=== PATIENT | female | born 2000 | race Two or more races ===

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

== ENCOUNTER 2021-10-31 22:29 | Emergency (ER) | payer MEDICAID ==
[~2021-10-31] VITALS: Ht 165.1 cm; Wt 97.5 kg
[~2021-10-31 22:29] MED LIST changes: -PREN-153 OR; +PREN1TAB71 OR
[2021-10-31 23:24] LABS: Urine Bacteria NONE SEEN /hpf (None Seen); Urine Blood Negative /uL (Negative); Urine Mucus FEW (None Seen); Urine Specific Gravity 1.009 (1.001-1.035); Urine WBC 15 /hpf (0 - 5)
[2021-11-01] MEDS ORDERED: ACETAMINOPHEN 500 MG TAB PO ONE
[2021-11-01 00:17] LABS: Basophils # (auto) 0 10 ^3/uL (0-0.2); Basophils % (auto) 0.4 % (0.0-2.0); Eosinophils # (auto) 0 10 ^3/uL (0-0.8); Hematocrit 37.1 % (36.0-46.0); Hemoglobin 12.9 g/dL (12.2-16.2); Lymphocytes # (auto) 0.9 10 ^3/uL (0.4-5.4); Lymphocytes % (auto) 11.2 % (10.0-50.0); Mean Corpuscular Hemoglobin 27.4 pg (28.0-32.0); Mean Corpuscular Hgb Conc. 34.7 g/dL (32.0-36.0); Mean Corpuscular Volume 78.8 fL (80.0-100.0); Monocytes # (auto) 0.6 10 ^3/uL (0-1.3); Monocytes % (auto) 7.3 % (0.0-12.0); Neutrophils # (auto) 6.7 10 ^3/uL (1.6-8.6); Neutrophils % (auto) 81.1 % (37.0-80.0); Nucleated Red Blood Cells % 0.1 %; Red Blood Cells 4.71 10^6/uL (4.0-5.20); Red Cell Distribution Width 15.2 % (11.8-14.3); White Blood Cell 8.3 10^3/uL (4.4-10.8)
[2021-11-01 00:21] LABS: Albumin 3.3 g/dL (3.4-5.0); BUN/Creatinine Ratio 10.3; Calcium 8.3 mg/dL (8.5-10.1); Potassium 3.5 mmol/L (3.5-5.1)
[2021-11-01 00:24] LABS: Bilirubin, Total 0.4 mg/dL (0.2-1.0); Total Protein 8.1 g/dL (6.4-8.2)
[2021-11-01] MEDS ORDERED: CEFD300C2 PO (04:11)
[2021-11-01 04:20] VITALS: BP 115/68
[2021-11-02] MEDS ORDERED: FAMO20TA10 PO (06:51)
== END 2021-11-01 04:41 | disposition home or self-care (01) ==
LOC: ER 22:29
DX: J02.8 Acute pharyngitis due to other specified organisms (principal); B97.89 Other viral agents as the cause of diseases classified elsewhere; R10.11 Right upper quadrant pain; R10.12 Left upper quadrant pain; R11.0 Nausea; R19.7 Diarrhea, unspecified; J45.909 Unspecified asthma, uncomplicated; Z90.49 Acquired absence of other specified parts of digestive tract; Z79.899 Other long term (current) drug therapy; Z91.018 Allergy to other foods
CPT/HCPCS: 36415; 80053; 81001; 81025; 83690; 85025; 87070; 87880; 93005

== ENCOUNTER 2021-11-01 18:48 | Emergency (ER) | payer MEDICAID ==
[~2021-11-01] VITALS: Ht 165.1 cm; Wt 97.5 kg
[~2021-11-01 18:48] MED LIST changes: +CEFD300C2 PO
[2021-11-01 23:12] LABS: Basophils # (auto) 0 10 ^3/uL (0-0.2); Basophils % (auto) 0.3 % (0.0-2.0); Eosinophils # (auto) 0 10 ^3/uL (0-0.8); Hematocrit 37.6 % (36.0-46.0); Hemoglobin 12.7 g/dL (12.2-16.2); Lymphocytes # (auto) 0.7 10 ^3/uL (0.4-5.4); Lymphocytes % (auto) 8.1 % (10.0-50.0); Mean Corpuscular Hemoglobin 26.2 pg (28.0-32.0); Mean Corpuscular Hgb Conc. 33.8 g/dL (32.0-36.0); Mean Corpuscular Volume 77.4 fL (80.0-100.0); Monocytes # (auto) 0.7 10 ^3/uL (0-1.3); Monocytes % (auto) 7.8 % (0.0-12.0); Neutrophils # (auto) 7.5 10 ^3/uL (1.6-8.6); Neutrophils % (auto) 83.8 % (37.0-80.0); Red Blood Cells 4.86 10^6/uL (4.0-5.20); White Blood Cell 8.9 10^3/uL (4.4-10.8)
[2021-11-01 23:48] LABS: Albumin 3.2 g/dL (3.4-5.0); Calcium 8.6 mg/dL (8.5-10.1); Magnesium 2.6 mg/dL (1.6-2.6); Potassium 3.2 mmol/L (3.5-5.1)
[2021-11-01 23:53] LABS: BUN/Creatinine Ratio 15.7; Bilirubin, Total 0.4 mg/dL (0.2-1.0); Total Protein 8.2 g/dL (6.4-8.2)
[2021-11-02 01:00] LABS: Urine Bacteria NONE SEEN /hpf (None Seen); Urine Blood 1+ /uL (Negative); Urine Mucus MODERATE (None Seen); Urine Specific Gravity 1.036 (1.001-1.035); Urine WBC 28 /hpf (0 - 5)
[2021-11-02] MEDS ORDERED: LIDOCAINE VISCOUS 2% 15ML UD PO ONE (01:15)
[2021-11-02] MEDS ORDERED: ACETAMINOPHEN 325 MG TAB PO ONE (01:15)
[2021-11-02 06:50] VITALS: BP 118/73
[2021-11-02] MEDS ORDERED: FAMO20TA10 PO (06:51)
== END 2021-11-02 07:00 | disposition home or self-care (01) ==
LOC: ER 18:48
DX: K21.9 Gastro-esophageal reflux disease without esophagitis (principal); J45.909 Unspecified asthma, uncomplicated; Z90.49 Acquired absence of other specified parts of digestive tract
CPT/HCPCS: 36415; 71045; 80053; 81001; 83735; 84484; 85025; 93005

== ENCOUNTER 2022-04-22 20:56 | Emergency (ER) | payer MEDICAID ==
[~2022-04-22 20:56] MED LIST changes: +FAMO20TA10 PO
== END 2022-04-22 21:51 | disposition left against medical advice (07) ==
LOC: ER 20:56
DX: R10.9 Unspecified abdominal pain (principal); Z53.21 Procedure and treatment not carried out due to patient leaving prior to being seen by health care provider

== ENCOUNTER 2022-11-08 22:55 | Emergency (ER) | payer MEDICAID ==
[~2022-11-08] VITALS: Ht 160 cm; Wt 65.9 kg
[2022-11-09] MEDS ORDERED: CEPH-510 PO (00:59)
[2022-11-09 02:42] VITALS: BP 101/69
== END 2022-11-09 02:49 | disposition home or self-care (01) ==
LOC: EDBD 22:55 → ER 22:55
DX: O23.42 Unspecified infection of urinary tract in pregnancy, second trimester (principal); N39.0 Urinary tract infection, site not specified; O99.512 Diseases of the respiratory system complicating pregnancy, second trimester; J45.909 Unspecified asthma, uncomplicated; Z90.49 Acquired absence of other specified parts of digestive tract; Z79.899 Other long term (current) drug therapy; Z91.018 Allergy to other foods; Z3A.18 18 weeks gestation of pregnancy

== ENCOUNTER 2023-04-10 22:18 | Observation (INO) | payer MEDICAID ==
[~2023-04-10] VITALS: Ht 165.1 cm; Wt 84.4 kg
[~2023-04-10 22:18] MED LIST changes: -ACET-1156 PO; +ACET-1881 PO; +CEPH-510 PO
[2023-04-11 01:16] LABS: Alcohol, Urine < 3.0 mg/dL (0-10); Amphetamine Screen, Urine NEGATIVE (NEGATIVE); Barbiturate Scree,Urine NEGATIVE (NEGATIVE); Cannabinoid Screen, Urine NEGATIVE (NEGATIVE); Cocaine Screen, Urine NEGATIVE (NEGATIVE); Opiate Scree,Urine NEGATIVE (NEGATIVE)
[2023-04-11 01:47] LABS: Benzodiazephine Screen, Urine NEGATIVE (NEGATIVE); Phencyclidine Screen, Urine NEGATIVE (NEGATIVE)
== END 2023-04-11 00:04 | disposition home or self-care (01) ==
LOC: LDRP 22:18
PROVIDERS: ADMIT Obstetrics & Gynecology; ATTEND Obstetrics & Gynecology
DX: O26.893 Other specified pregnancy related conditions, third trimester (principal); R10.9 Unspecified abdominal pain; Z3A.40 40 weeks gestation of pregnancy; Z79.899 Other long term (current) drug therapy
CPT/HCPCS: 59025; 80307; 81002; G0378

== ENCOUNTER 2024-01-13 13:09 | Emergency (ER) | payer MEDICAID ==
[~2024-01-13] VITALS: Ht 165.1 cm; Wt 86.5 kg
[2024-01-13 13:47] VITALS: BP 125/81; PULSE 72; RESP 16; TEMP 99; O2SAT 99
[2024-01-13] MEDS: ACETAMINOPHEN 500 MG TAB PO ONE (14:03)
[2024-01-13] MEDS ORDERED: METH-1182 PO (14:25)
[2024-01-13] MEDS ORDERED: IBUP-1456 PO (14:25)
== END 2024-01-13 14:28 | disposition home or self-care (01) ==
LOC: ER 13:09
DX: S16.1XXA Strain of muscle, fascia and tendon at neck level, initial encounter (principal); J45.909 Unspecified asthma, uncomplicated; Z90.49 Acquired absence of other specified parts of digestive tract; Z91.040 Latex allergy status; Z91.02 Food additives allergy status; V43.52XA Car driver injured in collision with other type car in traffic accident, initial encounter; Y93.89 Activity, other specified; Y92.89 Other specified places as the place of occurrence of the external cause; Y99.8 Other external cause status
CPT/HCPCS: 72040

== ENCOUNTER 2025-03-01 18:09 | Emergency (ER) | payer OTHER, MEDICAID ==
[~2025-03-01] VITALS: Ht 162.6 cm; Wt 86.4 kg
[~2025-03-01 18:09] MED LIST changes: +IBUP-1456 PO; +METH-1182 PO
[2025-03-01] MEDS: IBUPROFEN 800 MG TAB PO ONE (19:45)
[2025-03-01] MEDS ORDERED: IBUP-1456 PO (19:50)
--- NOTE | 2025-03-01 19:50 | ED.PDOC ---
Back pain HPI HPI Comments 24-year-old female presents to ER with complaints of back pain x1 day. 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 when she started experiencing diffuse lower lumbar back pain. She rates her current pain an 8/10 diffuse to lower lumbar spine without radiation. Reports that she did take Tylenol for her pain with slight relief and presents to ER ambulatory on arrival, with steady gait, in no distress. Denies nausea/vomiting, numbness/tingling, extremity weakness, chest pain, falls, changes in urination/BM or any further symptoms/complaints Time Seen by MD: 18:17 Primary Care Provider: PJ Gallegos Notes: Nurses Notes, Medications, Allergies Allergies: Coded Allergies: Pineapple (Verified Allergy, Intermediate, 04/10/23) patient states no allergies to pineapple. Latex (Verified Allergy, Mild, 04/10/23) Home Meds Active Scripts Ibuprofen (Ibuprofen) 800 Mg Tab, 1 TAB PO TID PRN, #30 TAB 0 Refills Prov:MIKE BROWNING 03/01/25 Methocarbamol (Methocarbamol) 750 Mg Tab, 750 MG PO BID, #20 TAB Prov:JERALD BAR 01/13/24 Ibuprofen (Ibuprofen) 800 Mg Tab, 1 TAB PO TID, #30 TAB Prov:JERALD BAR 01/13/24 Cephalexin ( Keflex 500) 500 Mg Cap, 2 CAP PO BID for 7 Days, #28 CAP Prov:SYEDA CAMILO DO 11/09/22 Famotidine (PEPCID TABLET) 20 Mg Tb, 1 TAB PO BID for 14 Days, #28 TAB Prov:CATARINO ARELLANO MD 11/02/21 Cefdinir (Cefdinir) 300 Mg Cap, 1 CAP PO BID for 7 Days, #14 CAP Prov:CATARINO ARELLANO MD 11/01/21 Reported Medications Acetaminophen (Acetaminophen) 325 Mg Tab, 325 MG PO Q4HP PRN for MILD PAIN for 30 Days, MG 0 Refills 08/23/19 Vit W/ Ferrous Fumara (PNV PLUS MULTIVI) Plus Tab, 1 OR, TAB 08/23/19 No Reported Medication (NO REPORTED MEDICATION) Ea, 0 CO UNK, EA PATIENT HAS NO REPORTED MEDICATIONS 06/30/13 Information Source: Patient Past Medical History PAST MEDICAL HISTORY: Asthma, UTI'S Surgical History: Cholecystectomy 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 HELPER History Family History Family History: No family hx of Cancer, No family hx of DM, No family hx of Lung tono Social History Smoker: Non-Smoker Alcohol: Denies ETOH Use Drugs: Denies Drug Use Lives In: Home Constitutional: denies: chills, diaphoresis, fatigue, fever, malaise, sweats, weakness, others EENTM: denies: blurred vision, double vision, ear bleeding, ear discharge, ear drainage, ear pain, ear ringing, eye pain, eye redness, hearing loss, mouth pain, mouth swelling, nasal discharge, nose bleeding, nose congestion, nose pain, photophobia, tearing, throat pain, throat swelling, voice changes, others Respiratory: denies: cough, hemoptysis, orthopnea, SOB at rest, shortness of breath, SOB with excertion, stridor, wheezing, others Cardiovascular: denies: chest pain, dizzy spells, diaphoresis, Dyspnea on exertion, edema, irregular heart beat, left arm pain, lightheadedness, palpitations, PND, syncope, others Gastrointestinal: denies: abdomen distended, abdominal pain, blood streaked bowels, constipated, diarrhea, dysphagia, difficulty swallowing, hematemesis, melena, nausea, poor appetite, poor fluid intake, rectal bleeding, rectal pain, vomiting, others Genitourinary: denies: abnormal vagina bleeding, burning, dyspareunia, dysuria, flank pain, frequency, hematuria, incontinence, pain, , vagina discharge, urgency, others Neurological: denies: dizziness, fainting, headache, left sided numbness, left sided weakness, numbness, paresthesia, pre-existing deficit, right sided numbness, right sided weakness, seizure, speech problems, tingling, tremors, weakness, others Musculoskeletal: reports: others (As stated in HPI) Integumetry: denies: bruises, change in color, change in hair/nails, dryness, laceration, lesions, lumps, rash, wounds, others Allergic/Immunocompromised: denies: Difficulty Healing, Frequent Infections, Hives, Itching, others Hematologic/Lymphatic: denies: anemia, blood clots, easy bleeding, easy bruising, swollen glands, others Endocrine: denies: excessive hunger, excessive sweating, excessive thirst, excessive urination, flushing, intolerance to cold, intolerance to heat, unexplained weight gain, unexplained weight loss, others Psychiatric: denies: anxiety, bipolar disorder, depression, hopeless, panic disorder, schizophrenia, sleepless, suicidal, others Physical Exam General Appearance: No Apparent Distress HEENT: PERRL/EOMI Neck: Full Range of Motion, Non-Tender, Normal Respiratory: Chest Non-Tender, Lungs Clear, No Accessory Muscle Use, No Respira tory Distress, Normal Breath Sounds Cardiovascular: No Murmur, No Gallop, Regular Rate/Rhythm Breast Exam: Deferred Gastrointestinal: Non Tender, No Pulsatile Mass, Soft Genitalia: Deferred Pelvic: Deferred Rectal: Deferred Extremities: Normal capillary refill, Normal range of motion Musculoskeletal : Extremity Location: Back (TTP centralized to lower lumbar spine and to bilateral lower lumbar paraspinals noted. No skin changes noted. Steady gait appreciated) Neurologic: Alert, No Motor Deficits, Normal Affect, Normal Mood, No Sensory Deficits Cerebellar Function: Normal Reflexes: Normal Skin: Dry, Normal Color, Warm Peripheral Pulses: 2+ femoral (R), 2+ femoral (L), 2+ dorsalis pedis (R), 2+ dorsalis pedis (L), 2+ Radial (R), 2+ Radial (L), 2+ Brachial (R), 2+ Brachial (L) Lymphatic: No Adenopathy Was a procedure done? Was a procedure done?: No Sedation Sedation?: No Back Pain Differential Dx Differential Diagnosis: Fracture, Other (Neurovascular injury, UTI) X-Ray, Labs, Meds, VS Vital Signs Date Time Temp Pulse Resp B/P (MAP) Pulse Ox O2 Delivery O2 Flow Rate FiO2 03/01/25 23:45 98.0 59 16 125/83 (97) 100 98.0 03/01/25 21:19 98.3 70 18 135/99 (111) 100 98.3 PATIENT: STEFFANY VIRAMONTES ACCT: [id number] UNIT: [id number] : 2000 LOC: ER ROOM / BED: / AGE / SEX: 24 / F ADM STATUS: REG ER SERVICE 39 ORDERING PHYSICIAN: MIKE BROWNING PROCEDURE(s): LUMB2 - LUMBAR SPINE 3 VIEW REASON: lumbar back pain ORDER NUMBER(s): [id number], ACCESSION NUMBER(s): [id number] EXAM: XY LUMBAR SPINE 2 VIEW DATE OF SERVICE: 03/01/2025 07:55 PM ORDERING PHYSICIAN: MIKE BROWNING REASON FOR EXAM: lumbar back pain TECHNIQUE: 2 views of the lumbar spine COMPARISON: None FINDINGS/IMPRESSION: No acute displaced fracture. The alignment is maintained. Intervertebral disc heights are maintained. Surgical clips project over the right upper quadrant. If clinical symptoms persist, CT or MRI may be beneficial in further evaluation. ATED BY: TYREE LANE MD DICTATED DATE/TIME: 03/01/252033 SIGNED BY: TYREE LANE MD SIGNED DATE/TIME: 03/01/252033 CC: waiver signed Ibuprofen 800 mg p.o. ordered Lumbar spine x-ray reviewed Workman's comp paperwork filled out Advised to follow up with PCP and workman's comp PCP in 1-2 days Patient verbalized understanding and agreeable with current plan of care Advised to return to ER immediately if symptoms worsen Images Reviewed?: Images reviewed and evaluated by me Time of 1ST Reevaluation: 19:42 Reevaluation 1ST: N/A Patient Education/Counseling: Diagnosis, Treatment, Prognosis, Need For Follow Up Family Education/Counseling: No Family Present SEPSIS Sepsis Screen Physician Orders Lumbar Spine 3 View (03/01/25 19:40) Vital Signs Date Time Temp Pulse Resp B/P (MAP) Pulse Ox O2 Delivery O2 Flow Rate FiO2 03/01/25 23:45 98.0 59 16 125/83 (97) 100 98.0 03/01/25 21:19 98.3 70 18 135/99 (111) 100 98.3 Departure 1 Departure Time of Disposition: 22:54 Impression: Primary Impression: Lumbar strain Qualified Codes: S39.012A - Strain of muscle, fascia and tendon of lower back, initial encounter Disposition: HOME / SELF CARE / HOMELESS Condition: Stable e-Prescriptions Ibuprofen (Ibuprofen) 800 Mg Tab 1 TAB PO TID PRN, #30 TAB 0 Refills Prov: MIKE BROWNING 03/01/25 Discharged With: Self Critical Care Note Critical Care Time?: No Stability Stability form required: No Heart Score Heart Score: Heart Score Response (Comments) Value History N/A 0 EKG N/A 0 Age N/A 0 Risk Factors N/A 0 Troponin N/A 0 Total 0 MIKE BROWNING Mar 01, 2025 19:50
--- NOTE | 2025-03-01 20:37 | DVH ---
EXAM: XY LUMBAR SPINE 2 VIEW DATE OF SERVICE: 03/01/2025 07:55 PM ORDERING PHYSICIAN: MIKE BROWNING REASON FOR EXAM: lumbar back pain TECHNIQUE: 2 views of the lumbar spine COMPARISON: None FINDINGS/IMPRESSION: No acute displaced fracture. The alignment is maintained. Intervertebral disc heights are maintained. Surgical clips project over the right upper quadrant. If clinical symptoms p ersist, CT or MRI may be beneficial in further evaluation.
[2025-03-01 23:45] VITALS: BP 125/83; PULSE 59; RESP 16; TEMP 98; O2SAT 100
== END 2025-03-02 | disposition home or self-care (01) ==
LOC: ER 18:09
DX: S39.012A Strain of muscle, fascia and tendon of lower back, initial encounter (principal); J45.909 Unspecified asthma, uncomplicated; Z87.440 Personal history of urinary (tract) infections; Z90.49 Acquired absence of other specified parts of digestive tract; X50.0XXA Overexertion from strenuous movement or load, initial encounter; Y93.89 Activity, other specified; Y92.89 Other specified places as the place of occurrence of the external cause; Y99.8 Other external cause status
CPT/HCPCS: 72100

== ENCOUNTER 2025-04-06 17:49 | Inpatient (IN) | payer MEDICAID, OTHER ==
[~2025-04-06] VITALS: Ht 165.1 cm; Wt 92.5 kg
--- NOTE | 2025-04-06 18:25 | ED.PDOC ---
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 Patient also notes urinary and fecal incontinence intermittently over the past month, and bilateral lower extremity numbness and tingling. She denies any lower extremity weakness. Chief Complaint: Back Pain Time Seen by MD: 18:01 Primary Care Provider: Yonatan Bustamante Reviewed Notes: Nurses Notes, Medications, Allergies Allergies: Coded Allergies: Pineapple (Verified Allergy, Intermediate, 04/10/23) patient states no allergies to pineapple. Latex (Verified Allergy, Mild, 04/10/23) Home Meds Active Scripts Ibuprofen (Ibuprofen) 800 Mg Tab, 1 TAB PO TID PRN, #30 TAB 0 Refills Prov:MIEK BROWNING 03/01/25 Methocarbamol (Methocarbamol) 750 Mg Tab, 750 MG PO BID, #20 TAB Prov:JERALD BAR 01/13/24 Ibuprofen (Ibuprofen) 800 Mg Tab, 1 TAB PO TID, #30 TAB Prov:JERALD BAR 01/13/24 Cephalexin ( Keflex 500) 500 Mg Cap, 2 CAP PO BID for 7 Days, #28 CAP Prov:SYEDA CAMILO DO 11/09/22 Famotidine (PEPCID TABLET) 20 Mg Tb, 1 TAB PO BID for 14 Days, #28 TAB Prov:CATARINO ARELLANO MD 11/02/21 Cefdinir (Cefdinir) 300 Mg Cap, 1 CAP PO BID for 7 Days, #14 CAP Prov:CATARINO ARELLANO MD 11/01/21 Reported Medications Acetaminophen (Acetaminophen) 325 Mg Tab, 325 MG PO Q4HP PRN for MILD PAIN for 30 Days, MG 0 Refills 08/23/19 Vit W/ Ferrous Fumara (PNV PLUS MULTIVI) Plus Tab, 1 OR, TAB 08/23/19 No Reported Medication (NO REPORTED MEDICATION) Ea, 0 CO UNK, EA PATIENT HAS NO REPORTED MEDICATIONS 06/30/13 Information Source: Patient Mode of Arrival: Ambulatory Severity: Moderate Timing: Months Duration: Since onset Past Medical History PAST MEDICAL HISTORY: Asthma, UTI'S Past Medical History (Other): Pancreatitis Surgical History: Cholecystectomy 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 Moist mucous membranes.) Neck: Full Range of Motion, Normal Inspection Respiratory: Lungs Clear, No Accessory Muscle Use, No Respiratory Distress, Normal Breath Sounds Cardiovascular: No Edema, No JVD, Regular Rate/Rhythm Breast Exam: Deferred Gastrointestinal: Non Tender, Soft Genitalia: Normal Pelvic: Deferred Rectal: Normal Exam, Normal rectal tone Extremities: Normal inspection, Normal range of motion, Non-tender, No pedal edema Neurologic: Alert (Oriented x4), No Motor Deficits, Normal Affect, Normal Mood, Sensory Deficit (Diminished light touch sensation right lower extremity, saddle anesthesia), Other (Ambulatory) Cerebellar Function: NOT DONE Reflexes: Normal, R Knee, L Knee Skin: Dry, Normal Color, Warm Lymphatic: NOT DONE Was a procedure done? Was a procedure done?: No Differential Dx Considerations may include: Cauda equina syndrome, disc herniation, peripheral neuropathy, UTI, among others X-Ray, Labs, Meds, VS Vital Signs Date Time Temp Pulse Resp B/P (MAP) Pulse Ox O2 Delivery O2 Flow Rate FiO2 04/06/25 19:58 Room Air* 0 21 04/06/25 19:51 98.3 79 20 135/75 (95) 96 98.3 04/06/25 17:50 97.8 100 65 16 97.8 Lab Test 04/06/25 18:37 04/06/25 18:36 Range/Units Urine Color Light-yellow Yellow Urine Clarity Turbid H Clear Urine pH 6.5 5.0-9.0 Urine Specific [place] 1.020 1.001-1.035 Urine Protein Negative Negative Urine Ketones Negative Negative Urine Blood Negative Negative /uL Urine Nitrite Negative Negative Urine Bilirubin Negative Negative Urine Urobilinogen Normal Negative mg/dL Urine Leukocyte Esterase 1+ Negative /uL Urine RBC 1 0 - 4 /hpf Urine Microscopic WBC 3 0-5 /HPF Urine Squamous Epithelial Cells Few <5 /hpf Urine Bacteria Few H None Seen /hpf Urine Hyaline Casts Few 0 - 2 /lpf Urine Glucose Normal Normal mg/dL Urine Test Positive Negative White Blood Count 13.0 H 4.4-10.8 10^3/uL Red Blood Count 4.86 4.0-5.20 10^6/uL Hemoglobin 12.9 12.2-16.2 g/dL Hematocrit 38.1 36.0-46.0 % Mean Corpuscular Volume 78.4 L 80.0-100.0 fL Mean Corpuscular Hemoglobin 26.5 L 28.0-32.0 pg Mean Corpuscular Hemoglobin Concent 33.8 32.0-36.0 g/dL Red Cell Distribution Width 14.0 11.8-14.3 % Platelet Count 301 140-450 10^3/uL Mean Platelet Volume 8.7 6.9-10.8 fL Neutrophils (%) (Auto) 72.2 37.0-80.0 % Lymphocytes (%) (Auto) 21.1 10.0-50.0 % Monocytes (%) (Auto) 5.1 0.0-12.0 % Eosinophils (%) (Auto) 1.3 0.0-7.0 % Basophils (%) (Auto) 0.3 0.0-2.0 % Neutrophils # (Auto) 9.3 H 1.6-8.6 10 ^3/uL Lymphocytes # (Auto) 2.7 0.4-5.4 10 ^3/uL Monocytes # (Auto) 0.7 0-1.3 10 ^3/uL Eosinophils # (Auto) 0.2 0-0.8 10 ^3/uL Basophils # (Auto) 0 0-0.2 10 ^3/uL Nucleated Red Blood Cells 0.1 % Sodium Level 140 136-145 mmol/L Potassium Level 4.0 3.5-5.1 mmol/L Chloride Level 106 98-107 mmol/L Carbon Dioxide Level 26 20-31 mmol/L Anion Gap 8 5-15 Blood Urea Nitrogen 7 L 9-23 mg/dL Creatinine 0.70 0.550-1.02 mg/dL Glomerular Filtration Rate Calc 124 >90 mL/min BUN/Creatinine Ratio 10.0 10.0-20.0 Serum Glucose 95 74-106 mg/dL Calcium Level 9.4 8.7-10.4 mg/dL X-Ray, Labs, Meds, VS Comment 24-year-old female with a history of pancreatitis, cholecystectomy and obesity brought in by self, referred by industrial medicine clinic for evaluation of low back pain, urinary and fecal incontinence for the past month after a heavy lifting injury Vitals remarkable for heart rate 65 Exam remarkable for saddle anesthesia and diminished light touch sensation distal right lower extremity Rhythm strip independently interpreted by me: Sinus rhythm, rate 65, no ectopy. CBC remarkable for WBC 13, basic metabolic panel unremarkable, UA abnormal consistent with UTI, urine positive Patient treated with the following in the ED: Morphine 4 mg IV, Zofran 4 mg IV, Rocephin 1 g IV On re-evaluation, pain had improved. Vitals were stable. There were no new neurologic changes. Patient remained ambulatory. Patient was unaware of her . Since CT should not be performed, plan is to admit the patient for spine MRI and Neurology evaluation. Time of 1ST Reevaluation: 18:31 Reevaluation 1ST: Unchanged Patient Education/Counseling: Diagnosis, Treatment Family Education/Counseling: No Family Present SEPSIS Sepsis Screen Date sepsis recognized/suspect: Apr 06, 2025 Time Sepsis recognized/suspect: 1749 Recent Procedure: No On Antibiotic Therapy: No Respiratory Rate >20: No Heart Rate >90: No Temp<36 C (96.8 F) or >38.3 C: No SBP <90 or MAP <65 mmHG: No New Acute Mental Status Change: No Is the patient on CPAP, BIPAP,: No Physician Orders Ls Spine Wo Contrast (04/06/25 18:15) Ceftriaxone 1gm/50ml D5w (Rocephin) (04/06/25 20:00) Vital Signs Date Time Temp Pulse Resp B/P (MAP) Pulse Ox O2 Delivery O2 Flow Rate FiO2 04/06/25 19:58 Room Air* 0 21 04/06/25 19:51 98.3 79 20 135/75 (95) 96 98.3 04/06/25 17:50 97.8 100 65 16 97.8 Laboratory Tests Test 04/06/25 18:36 White Blood Count 13.0 10^3/uL (4.4-10.8) H Departure 1 Departure Time of Disposition: 20:23 Impression: Primary Impression: Back pain Additional Impressions: Urinary incontinence Fecal incontinence UTI (urinary tract infection) Disposition: ADMITTED INPATIENT Admit to: Med Surg Condition: Guarded Critical Care Note Critical Care Time?: No Stability Stability form required: No Heart Score Heart Score: Heart Score Response (Comments) Value History N/A 0 EKG N/A 0 Age N/A 0 Risk Factors N/A 0 Troponin N/A 0 Total 0 I personally scribed for LUCIANO BIRMINGHAM MD ([email or web address]) on 04/06/25 at 18:43. Electronically submitted by Eric Vasquez [email or web address]). LUCIANO BIRMINGHAM MD Apr 06, 2025 18:25
[2025-04-06 18:58] LABS: Hematocrit 38.1 % (36.0-46.0); Hemoglobin 12.9 g/dL (12.2-16.2); Mean Corpuscular Hemoglobin 26.5 pg (28.0-32.0); Mean Corpuscular Volume 78.4 fL (80.0-100.0); Nucleated Red Blood Cells % 0.1 %
[2025-04-06 19:02] LABS: Chloride 106 mmol/L (98-107); Potassium 4.0 mmol/L (3.5-5.1); Sodium 140 mmol/L (136-145)
[2025-04-06 19:03] LABS: Anion Gap 8 (5-15); Carbon Dioxide 26 mmol/L (20-31)
[2025-04-06 19:04] LABS: Calcium 9.4 mg/dL (8.7-10.4)
[2025-04-06 19:08] LABS: Glucose 95 mg/dL (74-106)
[2025-04-06 19:09] LABS: BUN/Creatinine Ratio 10.0 (10.0-20.0); Blood Urea Nitrogen 7 mg/dL (9-23)
[2025-04-06 19:55] LABS: Urine Protein, UAD Negative (Negative)
[2025-04-06] MEDS: cefTRIAXone 1GM/50ML D5W 50 ML IV ONE (22:38)
[2025-04-06] MEDS: ONDANSETRON HCL 4 MG/2 ML VIAL IV ONE (22:38)
[2025-04-06] MEDS: MORPHINE SULFATE 4 MG/ML SYR/VIAL IV ONE (22:39)
--- NOTE | 2025-04-06 23:56 | DVHHPRES ---
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 She felt a sprain sensation. After few days, she started having bowel and bladder incontinence. She also reports having tingling and numbness sensation travels down to her legs. Today she visited the ER when she started having severe low back pain,7/10 in intensity. localized centrally. After presenting to the ER a urine test was performed, which came back positive. She denies any chest pain, shortness of breath, abdominal pain, vomiting or urinary symptoms. She reports having nausea. Past medical history: Asthma on albuterol inhaler, acute pancreatitis resolved:endoscopy done previously Past surgical history: Cholecystectomy Home medications: Albuterol inhaler, Flexeril Menstrual history: Regular, duration of cycle 28 days, last 6 days. LMP: week of February. Allergies: Pineapple, latex Smoking history: None Alcohol: Once a month Drugs: Marijuana over the weekends PCP: Dr. Dex Veloz Code status: Full code Review of Systems Genitourinary: Incontinence Musculoskeletal: back pain Allergies: Coded Allergies: Pineapple (Verified Allergy, Intermediate, 04/10/23) patient states no allergies to pineapple. Latex (Verified Allergy, Mild, 04/10/23) Exam Vital Signs Vital Signs Date Time Temp Pulse Resp B/P (MAP) Pulse Ox O2 Delivery O2 Flow Rate FiO2 04/06/25 22:39 67 16 149/92 04/06/25 21:54 98.8 100 98.8 04/06/25 19:58 Room Air* 0 21 Exam Pt is lying on bed General Appearance: Alert, Oriented X3, Cooperative, Mild distress HEENT: Atraumatic, Mucous membranes moist/pink Respiratory: Clear to auscultation, Normal air movement, No added sounds Cardiovascular: Regular rate, Normal S1, Normal S2, No murmurs Abdominal/ : Active bowel sounds, Soft, no distention, no tenderness Musculoskeletal: Tenderness in the central back, paraspinal muscles nontender. Straight leg raise test deferred for later Extremities: No edema, Normal pulses, No tenderness/swelling Skin: No Significant rash, except past surgical scars Neuro: Normal speech, sensorimotor deficits none Psych/Mental Status: Mental status NL, Mood NL Nurse was there as customer sales distributor during examination Labs/Xrays Labs Test 04/06/25 18:37 04/06/25 18:36 Range/Units Urine Color Light-yellow Yellow Urine Clarity Turbid H Clear Urine pH 6.5 5.0-9.0 Urine Specific [place] 1.020 1.001-1.035 Urine Protein Negative Negative Urine Ketones Negative Negative Urine Blood Negative Negative /uL Urine Nitrite Negative Negative Urine Bilirubin Negative Negative Urine Urobilinogen Normal Negative mg/dL Urine Leukocyte Esterase 1+ Negative /uL Urine RBC 1 0 - 4 /hpf Urine Microscopic WBC 3 0-5 /HPF Urine Squamous Epithelial Cells Few <5 /hpf Urine Bacteria Few H None Seen /hpf Urine Hyaline Casts Few 0 - 2 /lpf Urine Glucose Normal Normal mg/dL Urine Test Positive Negative White Blood Count 13.0 H 4.4-10.8 10^3/uL Red Blood Count 4.86 4.0-5.20 10^6/uL Hemoglobin 12.9 12.2-16.2 g/dL Hematocrit 38.1 36.0-46.0 % Mean Corpuscular Volume 78.4 L 80.0-100.0 fL Mean Corpuscular Hemoglobin 26.5 L 28.0-32.0 pg Mean Corpuscular Hemoglobin Concent 33.8 32.0-36.0 g/dL Red Cell Distribution Width 14.0 11.8-14.3 % Platelet Count 301 140-450 10^3/uL Mean Platelet Volume 8.7 6.9-10.8 fL Neutrophils (%) (Auto) 72.2 37.0-80.0 % Lymphocytes (%) (Auto) 21.1 10.0-50.0 % Monocytes (%) (Auto) 5.1 0.0-12.0 % Eosinophils (%) (Auto) 1.3 0.0-7.0 % Basophils (%) (Auto) 0.3 0.0-2.0 % Neutrophils # (Auto) 9.3 H 1.6-8.6 10 ^3/uL Lymphocytes # (Auto) 2.7 0.4-5.4 10 ^3/uL Monocytes # (Auto) 0.7 0-1.3 10 ^3/uL Eosinophils # (Auto) 0.2 0-0.8 10 ^3/uL Basophils # (Auto) 0 0-0.2 10 ^3/uL Nucleated Red Blood Cells 0.1 % Sodium Level 140 136-145 mmol/L Potassium Level 4.0 3.5-5.1 mmol/L Chloride Level 106 98-107 mmol/L Carbon Dioxide Level 26 20-31 mmol/L Anion Gap 8 5-15 Blood Urea Nitrogen 7 L 9-23 mg/dL Creatinine 0.70 0.550-1.02 mg/dL Glomerular Filtration Rate Calc 124 >90 mL/min BUN/Creatinine Ratio 10.0 10.0-20.0 Serum Glucose 95 74-106 mg/dL Calcium Level 9.4 8.7-10.4 mg/dL SEPSIS Sepsis Screen Date sepsis recognized/suspect: Apr 06, 2025 Time Sepsis recognized/suspect: 1749 Recent Procedure: No On Antibiotic Therapy: No Respiratory Rate >20: No Heart Rate >90: No Temp<36 C (96.8 F) or >38.3 C: No SBP <90 or MAP <65 mmHG: No New Acute Mental Status Change: No Is the patient on CPAP, BIPAP,: No Vital Signs Date Time Temp Pulse Resp B/P (MAP) Pulse Ox O2 Delivery O2 Flow Rate FiO2 04/06/25 22:39 67 16 149/92 04/06/25 21:54 98.8 67 16 149/92 (111) 100 98.8 04/06/25 19:58 Room Air* 0 21 04/06/25 19:51 98.3 79 20 135/75 (95) 96 98.3 04/06/25 17:50 97.8 100 65 16 97.8 Laboratory Tests Test 04/06/25 18:36 White Blood Count 13.0 10^3/uL (4.4-10.8) H Medications Medications Dose Ordered Sig/Mike Route Start Time Stop Time Status Last Admin Dose Admin Ceftriaxone Sodium 50 ml @ 100 mls/hr ONCE ONCE IV 04/06/25 20:00 04/06/25 20:29 DC 04/06/25 22:38 100 MLS/HR Morphine Sulfate 4 mg ONCE ONCE IV 04/06/25 18:30 04/06/25 18:43 DC 04/06/25 22:39 4 MG Ondansetron HCl 4 mg ONCE ONCE IV 04/06/25 18:30 04/06/25 18:43 DC 04/06/25 22:38 4 MG Assessment/Plan Assessment/Plan Spinal cord injury followed by trauma -MRI of the lumbar spine ordered -Tylenol for pain -consult neurology or spine surgery, if necessary and asymptomatic UTI likely due to cystitis Urinalysis: Color turbid, urine bacteria few. Nitrofurantoin 100 mg p.o. b.i.d. : -perform ultrasound -outpatient follow up with psychology teacher - vitamin started Marijuana use disorder: Counseling regarding cessation was done for more than 15 GI prophylaxis: Not indicated DVT prophylaxis: Not indicated Diet: Regular Goals of care discussed with the patient for more than 27 minutes: Full code status Case discussed with Dr. Momin, patient and RN Plan discussed with: Patient, Other (RN) Date of Service: Apr 06, 2025 Billing Provider: FREDDY MOMIN MD Common Visit Codes: [id number] INP/OBS CARE (HIGH) Secondary Visit Codes: [id number] CARE PLAN 30 MINUTES CYNTHIA MOREIRA Apr 06, 2025 23:56 FREDDY MOMIN MD Apr 11, 2025 16:28
[2025-04-07] MEDS ORDERED: ACETAMINOPHEN 325 MG TAB PO PRN (00:15)
[2025-04-07 03:35] VITALS: BP 123/59; PULSE 54; RESP 16; TEMP 97.5; O2SAT 100
[2025-04-07] MEDS: PRENATAL VITAMIN TAB PO ONE (04:45)
[2025-04-07 05:00] VITALS: BP 123/88; PULSE 65; RESP 17; TEMP 97.3; O2SAT 98
[2025-04-07 09:00] VITALS: BP 107/60; PULSE 59; RESP 16; TEMP 97.5; O2SAT 97
--- NOTE | 2025-04-07 10:16 | DVH ---
MRI LUMBAR SPINE WO CONTRAST INDICATION: Low back pain and bowel bladder incontinence EXAM DATE: 04/07/2025 08:16 AM COMPARISON: XY LUMBAR SPINE 2 VIEW on DOS: 03/01/25 PROCEDURE: Using a 1.5 Elizabeth scanner, multisequence multiplanar imaging of the lumbar spine was obtai diaz. FINDINGS: There are five lumbar vertebral segments. The lumbar spine shows anatomic alignment with pr eservation of vertebral body heights. The marrow signal is homogeneous. The intervertebral discs appe ar normal in height and signal. The distal spinal cord is normal in signal and morphology and the con us medullaris terminates at L1. The paraspinal soft tissues are normal. On axial images: the posterior disc margin, thecal sac, neural foramina, and facet joints appear nor mal. IMPRESSION: Unremarkable MRI findings of the lumbar spine.
[2025-04-07 12:49] VITALS: BP 121/73; PULSE 76; RESP 18; TEMP 98.7; O2SAT 99
[2025-04-07] MEDS ORDERED: NITR-87 PO (13:47)
--- NOTE | 2025-04-07 13:49 | DVHDS2 ---
Discharge Summary Date of Admission Apr 06, 2025 at 23:56 Date of Discharge: Apr 07, 2025 Labs/Diagnostic Data: Laboratory Results Test 04/06/25 18:37 04/06/25 18:36 Urine Color Light-yellow (Yellow) Urine Clarity Turbid (Clear) Urine pH 6.5 (5.0-9.0) Urine Specific [place] 1.020 (1.001-1.035) Urine Protein Negative (Negative) Urine Ketones Negative (Negative) Urine Blood Negative /uL (Negative) Urine Nitrite Negative (Negative) Urine Bilirubin Negative (Negative) Urine Urobilinogen Normal mg/dL (Negative) Urine Leukocyte Esterase 1+ /uL (Negative) Urine RBC 1 /hpf (0 - 4) Urine Microscopic WBC 3 /HPF (0-5) Urine Squamous Epithelial Cells Few /hpf (<5) Urine Bacteria Few /hpf (None Seen) Urine Hyaline Casts Few /lpf (0 - 2) Urine Glucose Normal mg/dL (Normal) Urine Test Positive (Negative) White Blood Count 13.0 10^3/uL (4.4-10.8) Red Blood Count 4.86 10^6/uL (4.0-5.20) Hemoglobin 12.9 g/dL (12.2-16.2) Hematocrit 38.1 % (36.0-46.0) Mean Corpuscular Volume 78.4 fL (80.0-100.0) Mean Corpuscular Hemoglobin 26.5 pg (28.0-32.0) Mean Corpuscular Hemoglobin Concent 33.8 g/dL (32.0-36.0) Red Cell Distribution Width 14.0 % (11.8-14.3) Platelet Count 301 10^3/uL (140-450) Mean Platelet Volume 8.7 fL (6.9-10.8) Neutrophils (%) (Auto) 72.2 % (37.0-80.0) Lymphocytes (%) (Auto) 21.1 % (10.0-50.0) Monocytes (%) (Auto) 5.1 % (0.0-12.0) Eosinophils (%) (Auto) 1.3 % (0.0-7.0) Basophils (%) (Auto) 0.3 % (0.0-2.0) Neutrophils # (Auto) 9.3 10 ^3/uL (1.6-8.6) Lymphocytes # (Auto) 2.7 10 ^3/uL (0.4-5.4) Monocytes # (Auto) 0.7 10 ^3/uL (0-1.3) Eosinophils # (Auto) 0.2 10 ^3/uL (0-0.8) Basophils # (Auto) 0 10 ^3/uL (0-0.2) Nucleated Red Blood Cells 0.1 % Sodium Level 140 mmol/L (136-145) Potassium Level 4.0 mmol/L (3.5-5.1) Chloride Level 106 mmol/L (98-107) Carbon Dioxide Level 26 mmol/L (20-31) Anion Gap 8 (5-15) Blood Urea Nitrogen 7 mg/dL (9-23) Creatinine 0.70 mg/dL (0.550-1.02) Glomerular Filtration Rate Calc 124 mL/min (>90) BUN/Creatinine Ratio 10.0 (10.0-20.0) Serum Glucose 95 mg/dL (74-106) Calcium Level 9.4 mg/dL (8.7-10.4) Other Laboratory Tests 04/06/25 18:36 Brief Hx & Hospital Course: 24-year-old female who has a work-related injury on March 01 eventually all day follow up in the bag presented to the hospital with a follow up MRI lumbar spine. Patient underwent MRI spine which shows no evidence of any acute pathology. Patient is currently has a history of chronic back pain recently. Patient was found to have UTI which was treated with one dose of Rocephin rubs switched to nitrofurantoin which will be finished the course. Patient also has chronic marijuana use, patient has a incidental finding of although denies any nausea and vomiting. Patient was recommended to be on and follow up with the OB/Gynecology as an outpatient. Morbid obesity class one diet weight reduction and exercise counseling has been discussed. Patient is being discharged under stable condition. Condition at Discharge: Stable Final Diagnosis/Problems List 1. Acute on chronic low back pain, MRI lumbar spine shows no evidence of acute pathology 2. Bacteriuria/UTI, p.o. antibiotics for 3.5 more days 3. Chronic marijuana use 4. outpatient follow up with OB Gynecology 5. Morbid obesity classI, diet weight reduction and exercise counseling Discharge Disposition: Home SNF Discharge Will this Physician continue t: No Discharge Instruct/Medications Diet: Cardiac 2g Na,low cholest Activity: No Restrictions, As Tolerated Follow Up/Referral: With the PCP in 1-2 weeks Follow up with the spine surgery through the primary if back pain persists. Follow up with OBG/gynecology for your in 1-2 weeks Medications: Nitrofurantoin for 3.5 days as prescribed Scheduled Famotidine (Pepcid Tablet), 1 TAB PO BID Methocarbamol (Methocarbamol), 750 MG PO BID Nitrofurantoin Monohydrate Mac (Macrobid), 100 MG PO BID No Reported Medication (No Reported Medication), 0 CO UNK, (Reported) Scheduled PRN Acetaminophen (Acetaminophen), 325 MG PO Q4HP PRN for MILD PAIN, (Reported) Ibuprofen (Ibuprofen), 1 TAB PO TID PRN Miscellaneous Medications Vit W/ Ferrous Fumara (Pnv Plus Multivi), 1 OR, (Reported) Discontinued Medications Cefdinir (Cefdinir), 1 CAP PO BID Cephalexin ( Keflex 500), 2 CAP PO BID Ibuprofen (Ibuprofen), 1 TAB PO TID Discharge Statement: "Patient was advised to return to the ER or call 911 if any headaches, dizziness, shortness of breath, chest pain, abdominal pain, bleeding, fevers, or worsening of medical condition. Patient was counseled about treatment plan, medications, possible side effects, patientverbalized understanding. All questions were answered to the best of my ability. This discharge took greater then 30 minutes in planning, reviewing documentation, counseling the patient, and discussing with other team members." ASSESSMENT ASSESSMENT Assessment Spinal cord injury followed by trauma -MRI of the lumbar spine ordered -Tylenol for pain -consult neurology or spine surgery, if necessary and asymptomatic UTI likely due to cystitis Urinalysis: Color turbid, urine bacteria few. Nitrofurantoin 100 mg p.o. b.i.d. 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
[2025-04-07 14:30] VITALS: BP 121/73; PULSE 76; RESP 18; TEMP 98.7; O2SAT 99
[2025-04-08] MEDS ORDERED: PRENATAL VITAMIN TAB PO SCH (10:00)
== END 2025-04-07 15:31 | disposition home or self-care (01) | DRG 463 ==
LOC: ER 17:50 → OVERFLOW 23:56 → UNDOADMIN 04-07 00:01 → WEST WING 04-07 03:35
PROVIDERS: ATTEND Emergency Medicine
DX: N30.90 Cystitis, unspecified without hematuria (principal); E66.01 Morbid (severe) obesity due to excess calories; G89.29 Other chronic pain; Z33.1 Pregnant state, incidental; E66.811 Obesity, class 1; R15.9 Full incontinence of feces; R32 Unspecified urinary incontinence; J45.909 Unspecified asthma, uncomplicated; F12.10 Cannabis abuse, uncomplicated; Z91.040 Latex allergy status; Z91.018 Allergy to other foods; Z79.1 Long term (current) use of non-steroidal anti-inflammatories (NSAID); Z79.2 Long term (current) use of antibiotics; Z90.49 Acquired absence of other specified parts of digestive tract; Z79.899 Other long term (current) drug therapy; Z68.33 Body mass index [BMI] 33.0-33.9, adult
CPT/HCPCS: 36415; 72148; 80048; 81001; 81025; 84702; 85025; 96365; 96375; G0378; J2405

== ENCOUNTER 2025-05-07 10:33 | Emergency (ER) | payer MEDICAID ==
[~2025-05-07] VITALS: Ht 165.1 cm; Wt 94.1 kg
[~2025-05-07 10:33] MED LIST changes: -CEFD300C2 PO; -CEPH-510 PO; +NITR-87 PO
--- NOTE | 2025-05-07 11:20 | ED.PDOC ---
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 Pt states she has been having vaginal bleeding since earlier this AM. Patient was seen by me in March of 2025 DV 1x month prior and was diagnosed as newly with a UTI. Pt states since, she has established care with OB and had ultrasound which showed an intrauterine gestational sac. Pt states today, her bleeding was similar to the bleeding with menses. Pt otherwise states she is having abdominal cramping and vomiting but otherwise denies any other complaints. Pt has noted BP of 152/98 and temp of 97.4 F with otherwise stable vitals including heart rate 60, rr 16 and 02 sat of 100% on room air. Pt otherwise denies any other symptoms at this time. Chief Complaint: Vaginal Bleed Time Seen by MD: 11:19 Reviewed Notes: Medications, Allergies Allergies: Coded Allergies: Pineapple (Verified Allergy, Intermediate, 04/10/23) patient states no allergies to pineapple. Latex (Verified Allergy, Mild, 04/10/23) Home Meds Active Scripts Nitrofurantoin Monohydrate Mac (Macrobid) 100 Mg Cap, 100 MG PO BID for 3 Days, #7 CAP Prov:ANTONIO HARLEY MD 04/07/25 Ibuprofen (Ibuprofen) 800 Mg Tab, 1 TAB PO TID PRN, #30 TAB 0 Refills Prov:MIKE BROWNING 03/01/25 Methocarbamol (Methocarbamol) 750 Mg Tab, 750 MG PO BID, #20 TAB Prov:JERALD BAR 01/13/24 Famotidine (PEPCID TABLET) 20 Mg Tb, 1 TAB PO BID for 14 Days, #28 TAB Prov:CATARINO ARELLANO MD 11/02/21 Reported Medications Acetaminophen (Acetaminophen) 325 Mg Tab, 325 MG PO Q4HP PRN for MILD PAIN for 30 Days, MG 0 Refills 08/23/19 Vit W/ Ferrous Fumara (PNV PLUS MULTIVI) Plus Tab, 1 OR, TAB 08/23/19 No Reported Medication (NO REPORTED MEDICATION) Ea, 0 CO UNK, EA PATIENT HAS NO REPORTED MEDICATIONS 06/30/13 Information Source: Patient Mode of Arrival: Ambulatory Past Medical History PAST MEDICAL HISTORY: Asthma, UTI'S Past Medical History (Other): Pancreatitis, low back pain Surgical History: 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 Moist mucous membranes.) Neck: Full Range of Motion, Normal Inspection Respiratory: Lungs Clear, No Accessory Muscle Use, No Respiratory Distress, Normal Breath Sounds Cardiovascular: No Edema, No JVD, Regular Rate/Rhythm Breast Exam: Deferred Gastrointestinal: Non Tender, Soft Genitalia: Deferred Pelvic: Deferred Rectal: Deferred Extremities: Normal inspection, Normal range of motion, Non-tender, No pedal edema Neurologic: Alert (Oriented x4), Normal Affect, Normal Mood, Other (Ambulatory without difficulty) Cerebellar Function: NOT DONE Reflexes: NOT DONE Skin: Dry, Normal Color, Warm Lymphatic: NOT DONE Was a procedure done? 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) Vaginal Bleeding: - Threatened, Cervicitis, Ectopic , Myomatous Uterus, PID, UTI, Other (subchorionic hemorrhage, coagulopathy, among others) X-Ray, Labs, Meds, VS Vital Signs Date Time Temp Pulse Resp B/P (MAP) Pulse Ox O2 Delivery O2 Flow Rate FiO2 05/07/25 10:36 97.4 60 16 152/98 100 97.4 Lab Test 05/07/25 11:36 05/07/25 11:15 Range/Units White Blood Count 8.9 4.4-10.8 10^3/uL Red Blood Count 5.10 4.0-5.20 10^6/uL Hemoglobin 13.3 12.2-16.2 g/dL Hematocrit 39.5 36.0-46.0 % Mean Corpuscular Volume 77.6 L 80.0-100.0 fL Mean Corpuscular Hemoglobin 26.1 L 28.0-32.0 pg Mean Corpuscular Hemoglobin Concent 33.7 32.0-36.0 g/dL Red Cell Distribution Width 14.4 H 11.8-14.3 % Platelet Count 280 140-450 10^3/uL Mean Platelet Volume 8.7 6.9-10.8 fL Neutrophils (%) (Auto) 69.1 37.0-80.0 % Lymphocytes (%) (Auto) 24.3 10.0-50.0 % Monocytes (%) (Auto) 3.9 0.0-12.0 % Eosinophils (%) (Auto) 2.2 0.0-7.0 % Basophils (%) (Auto) 0.5 0.0-2.0 % Neutrophils # (Auto) 6.2 1.6-8.6 10 ^3/uL Lymphocytes # (Auto) 2.2 0.4-5.4 10 ^3/uL Monocytes # (Auto) 0.4 0-1.3 10 ^3/uL Eosinophils # (Auto) 0.2 0-0.8 10 ^3/uL Basophils # (Auto) 0 0-0.2 10 ^3/uL Nucleated Red Blood Cells 0.1 % Prothrombin Time 10.4 9.3-11.8 sec Prothrombin Time INR 0.98 0.9-1.15 Activated Partial Thromboplast Time 29.6 24.5-34.5 SEC Beta HCG, Quantitative 4701.2 H 1.5-4.2 mIU/mL Urine Color Yellow Yellow Urine Clarity Turbid H Clear Urine pH 6.0 5.0-9.0 Urine Specific [place] 1.035 1.001-1.035 Urine Protein Trace H Negative Urine Ketones Negative Negative Urine Blood 3+ H Negative /uL Urine Nitrite Negative Negative Urine Bilirubin Negative Negative Urine Urobilinogen Normal Negative mg/dL Urine Leukocyte Esterase Trace Negative /uL Urine RBC 12 0 - 4 /hpf Urine Microscopic WBC 9 H 0-5 /HPF Urine Squamous Epithelial Cells Few <5 /hpf Urine Bacteria Few H None Seen /hpf Urine Mucus Few None Seen Urine Glucose Normal Normal mg/dL PROCEDURE(s): OB4US - OB ULTRASOUND COMP LESS 14WKS REASON: 5 wk preg vag bleed ORDER NUMBER(s): [id number], ACCESSION NUMBER(s): [id number] Procedure: US OB ULTRASOUND COMP LESS 14WKS Study Date and Requested Time: 05/07/2025 01:02 PM Study Description: US OB ULTRASOUND COMP LESS 14WKS History: 5 wk preg vag bleed Comparison: None Technique: Multiple high resolution moran-scale images obtained of the uterus, fetus, and other gestational components with M-mode scanning for evaluation of heart rate. Findings: Redemonstration of Intrauterine sonolucent area which may represent a gestational sac. No yolk sac or Estimated gestational age 5 weeks/ 4 days based on mean gestational sac diameter of 1.36 cm. 1.1 x 0.5 x 0.5 cm anechoic area is noted adjacent to the gestational sac. Uterus measures 9.4 x 5.4 x 5.2 cm in size. Cervical os appears closed. Right ovary measures 3.2 x 2.3 x 2 cm. Left ovary measures 3.2 x 2 x 2.1 cm. Normal ovarian color Doppler flow bilaterally. No evidence of cystic or solid ovarian lesions. No evidence of free fluid in the cul-de-sac. Impression: Redemonstration of Intrauterine sonolucent area which may represent a gestational sac with no yolk sac or pole visualized. Finding may be due to early . Estimated gestational age 5 weeks/ 4 days with estimated date of confinement 01/03/2026. Recommend follow-up with serial beta HCG and ultrasound as clinically indicated. 1.1 x 0.5 by 0.5 cm anechoic area is noted adjacent to the suggested gestational sac which may represent small subchorionic hemorrhage. X-Ray, Labs, Meds, VS Comment 25-year-old female with current approximate 5 week and history of asthma, UTIs and pancreatitis complaining of vaginal bleeding Vitals remarkable for BP 152/98 Exam unremarkable Rhythm strip independently interpreted by me: Sinus rhythm, rate 60, no ectopy. Ob ultrasound Impression: Redemonstration of Intrauterine sonolucent area which may represent a gestational sac with no yolk sac or pole visualized. Finding may be due to early . Estimated gestational age 5 weeks/ 4 days with estimated date of confinement 01/03/2026. Recommend follow-up with serial beta HCG and ultrasound as clinically indicated. 1.1 x 0.5 by 0.5 cm anechoic area is noted adjacent to the suggested gestational sac which may represent small subchorionic hemorrhage. CBC and coagulation panel unremarkable, UA positive for blood, WBCs, bacteria and trace leukocyte esterase, serum quantitative hCG 4701.2, Rh positive No acute treatment indicated in the ED. On re-evaluation, exam is unchanged and vitals were stable. Patient appears comfortable. Patient was advised regarding the possibilities of early normal , miscarriage, ectopic . She expressed understanding and was advised follow-up with her OBGYN in 2-3 days for repeat ultrasound and repeat serum quantitative hCG. Time of 1ST Reevaluation: 12:14 Reevaluation 1ST: Unchanged Patient Education/Counseling: Diagnosis, Treatment, Prognosis Family Education/Counseling: No Family Present Departure 1 Departure Time of Disposition: 13:15 Impression: Primary Impression: Vaginal bleeding affecting early Additional Impression: Bacteriuria Disposition: HOME / SELF CARE / HOMELESS Condition: Stable Additional Instructions: Your blood tests were unremarkable. Your urine test showed you have some bacteria and white blood cells and your urine, which we typically treat with antibiotics to prevent infection. Your serum quantitative hCG ( hormone level) was 4701.2 . Your ultrasound showed an intrauterine gestational sac, however it may still be too early to visualize the fetus. I have enclosed the report below to bring to your OBGYN when you follow-up. I have prescribed antibiotics to prevent a urinary tract infection, as well as medication for nausea and vomiting. Follow-up with your OBGYN in 2-3 days for repeat hormone testing and repeat ultrasound. If you are unable to establish an appointment with your OBGYN, you may follow-up at any emergency room. Return to ER sooner for worsening symptoms or any other concern. [place] [id number] Ph: [phone] DIAGNOSTIC IMAGING Diagnostic Imaging Report : [id number] Signed PATIENT: STEFFANY VIRAMONTES ACCT: [id number] UNIT: [id number] : 2000 LOC: ER ROOM / BED: / AGE / SEX: 25 / F ADM STATUS: REG ER SERVICE 1115 ORDERING PHYSICIAN: LUCIANO BIRMINGHAM MD PROCEDURE(s): OB4US - OB ULTRASOUND COMP LESS 14WKS REASON: 5 wk preg vag bleed ORDER NUMBER(s): [id number], ACCESSION NUMBER(s): [id number] Procedure: US OB ULTRASOUND COMP LESS 14WKS Study Date and Requested Time: 05/07/2025 01:02 PM Study Description: US OB ULTRASOUND COMP LESS 14WKS History: 5 wk preg vag bleed Comparison: None Technique: Multiple high resolution moran-scale images obtained of the uterus, fetus, and other gestational components with M-mode scanning for evaluation of heart rate. Findings: Redemonstration of Intrauterine sonolucent area which may represent a gestational sac. No yolk sac or Estimated gestational age 5 weeks/ 4 days based on mean gestational sac diameter of 1.36 cm. 1.1 x 0.5 x 0.5 cm anechoic area is noted adjacent to the gestational sac. Uterus measures 9.4 x 5.4 x 5.2 cm in size. Cervical os appears closed. Right ovary measures 3.2 x 2.3 x 2 cm. Left ovary measures 3.2 x 2 x 2.1 cm. Normal ovarian color Doppler flow bilaterally. No evidence of cystic or solid ovarian lesions. No evidence of free fluid in the cul-de-sac. Impression: Redemonstration of Intrauterine sonolucent area which may represent a gestational sac with no yolk sac or pole visualized. Finding may be due to early . Estimated gestational age 5 weeks/ 4 days with estimated date of confinement 01/03/2026. Recommend follow-up with serial beta HCG and ultrasound as clinically indicated. 1.1 x 0.5 by 0.5 cm anechoic area is noted adjacent to the suggested gestational sac which may represent small subchorionic hemorrhage. e-Prescriptions Doxylamine-Pyridoxine (DICLEGIS) 1 Tab Tab 1 TAB OR HS PRN, #30 TAB Prn nausea/vomiting Prov: LUCIANO BIRMINGHAM MD 05/07/25 Nitrofurantoin Monohydrate Mac (Macrobid) 100 Mg Cap 100 MG PO BID for 7 Days, #14 CAP Prov: LUCIANO BIRMINGHAM MD 05/07/25 Discharged With: Self Critical Care Note Critical Care Time?: No Stability Stability form required: No Heart Score Heart Score: Heart Score Response (Comments) Value History N/A 0 EKG N/A 0 Age N/A 0 Risk Factors N/A 0 Troponin N/A 0 Total 0 I personally scribed for LUCIANO BIRMINGHAM MD ([email or web address]) on 05/07/25 at 11:20. Electronically submitted by Yaneth Stewart ([facility]). LUCIANO BIRMINGHAM MD May 07, 2025 11:20
[2025-05-07 11:42] LABS: Urine Protein, UAD TRACE (Negative)
[2025-05-07 12:07] LABS: Hematocrit 39.5 % (36.0-46.0); Hemoglobin 13.3 g/dL (12.2-16.2); Mean Corpuscular Hemoglobin 26.1 pg (28.0-32.0); Mean Corpuscular Volume 77.6 fL (80.0-100.0); Nucleated Red Blood Cells % 0.1 %
[2025-05-07 12:20] LABS: INR 0.98 (0.9-1.15); Partial Thromboplastin Time 29.6 SEC (24.5-34.5); Prothrombin Time 10.4 sec (9.3-11.8)
--- NOTE | 2025-05-07 13:39 | DVH ---
Procedure: US OB ULTRASOUND COMP LESS 14WKS Study Date and Requested Time: 05/07/2025 01:02 PM Study Description: US OB ULTRASOUND COMP LESS 14WKS History: 5 wk preg vag bleed Comparison: None Technique: Multiple high resolution moran-scale images obtained of the uterus, fetus, and other gestat ional components with M-mode scanning for evaluation of heart rate. Findings: Redemonstration of Intrauterine sonolucent area which may represent a gestational sac. No yolk sac o r Estimated gestational age 5 weeks/ 4 days based on mean gestational sac diameter of 1.36 cm. 1.1 x 0.5 x 0.5 cm anechoic area is noted adjacent to the gestational sac. Uterus measures 9.4 x 5.4 x 5.2 cm in size. Cervical os appears closed. Right ovary measures 3.2 x 2.3 x 2 cm. Left ovary measures 3.2 x 2 x 2.1 cm. Normal ovarian color Dop pler flow bilaterally. No evidence of cystic or solid ovarian lesions. No evidence of free fluid in the cul-de-sac. Impression: Redemonstration of Intrauterine sonolucent area which may represent a gestational sac with no yolk sa c or pole visualized. Finding may be due to early . Estimated gestational age 5 weeks / 4 days with estimated date of confinement 01/03/2026. Recommend follow-up with serial beta HCG and ultrasound as clinically indicated. 1.1 x 0.5 by 0.5 cm anechoic area is noted adjacent to the suggested gestational sac which may repres ent small subchorionic hemorrhage.
[2025-05-07 15:00] VITALS: BP 126/76; PULSE 74; RESP 16; TEMP 97.7; O2SAT 100
[2025-05-07] MEDS ORDERED: DOXY10TA OR (15:06)
[2025-05-07] MEDS ORDERED: NITR-87 PO (15:06)
== END 2025-05-07 15:19 | disposition home or self-care (01) ==
LOC: ER 10:33
DX: O20.9 Hemorrhage in early pregnancy, unspecified (principal); O20.0 Threatened abortion; R82.71 Bacteriuria; Z3A.01 Less than 8 weeks gestation of pregnancy; Z91.040 Latex allergy status; Z90.49 Acquired absence of other specified parts of digestive tract
CPT/HCPCS: 36415; 76801; 81001; 84702; 85025; 85610; 85730; 86900; 86901

== ENCOUNTER 2025-05-08 16:52 | Emergency (ER) | payer MEDICAID ==
[~2025-05-08] VITALS: Ht 172.7 cm; Wt 90.9 kg
[~2025-05-08 16:52] MED LIST changes: +DOXY10TA OR
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
[2025-05-08 18:28] LABS: Hematocrit 36.1 % (36.0-46.0); Hemoglobin 11.9 g/dL (12.2-16.2); Mean Corpuscular Hemoglobin 25.6 pg (28.0-32.0); Mean Corpuscular Volume 77.5 fL (80.0-100.0); Nucleated Red Blood Cells % 0.0 %
[2025-05-08] MEDS: SODIUM CHLORIDE 0.9% 500 ML IV ONE (18:30)
[2025-05-08] MEDS: MORPHINE SULFATE INJ 2 MG/ml SYRG IV ONE (18:37)
[2025-05-08] MEDS: ONDANSETRON HCL 4 MG/2 ML VIAL IV ONE (18:37)
[2025-05-08 18:40] LABS: INR 1.02 (0.9-1.15); Partial Thromboplastin Time 29.5 SEC (24.5-34.5); Prothrombin Time 10.8 sec (9.3-11.8)
[2025-05-08 18:44] LABS: Chloride 104 mmol/L (98-107); Potassium 3.6 mmol/L (3.5-5.1); Sodium 140 mmol/L (136-145)
[2025-05-08 18:45] LABS: Anion Gap 9 (5-15); Calcium 9.1 mg/dL (8.7-10.4); Carbon Dioxide 27 mmol/L (20-31)
[2025-05-08 18:50] LABS: BUN/Creatinine Ratio 11.8 (10.0-20.0); Glucose 95 mg/dL (74-106)
[2025-05-08 18:57] VITALS: TEMP 97.9
[2025-05-08 18:58] VITALS: PULSE 79; RESP 10; O2SAT 100
[2025-05-08 19:25] LABS: Blood Urea Nitrogen 8 mg/dL (9-23)
[2025-05-08 19:30] VITALS: PULSE 86; RESP 12; O2SAT 100
--- NOTE | 2025-05-08 20:27 | DVH ---
Procedure: US OB ULTRASOUND COMP LESS 14WKS Study Date and Requested Time: 05/08/2025 07:40 PM Study Description: US OB ULTRASOUND COMP LESS 14WKS History: vag bleeding Comparison: US OB ULTRASOUND COMP LESS 14WKS on DOS: 05/07/25 Technique: Multiple high resolution moran-scale images obtained of the uterus, fetus, and other gestat ional components with M-mode scanning for evaluation of heart rate. Findings: No intrauterine is visualized. Endometrial thickness of 1 cm Uterus measures 10.2 x 4.6 x 5.7 cm in size. Cervical os appears closed. Right ovary is not visualized. Left ovary measures 3.6 x 3.8 x 1.7 cm. Normal ovarian color Doppler f low bilaterally. No evidence of cystic or solid ovarian lesions. No evidence of free fluid in the cul-de-sac. Impression: No intrauterine is visualized. Recommend correlation with the beta HCG. The left ovary is unremarkable with the right ovary not visualized. Endometrial thickness is within normal limits at 1 cm.
[2025-05-08 21:30] VITALS: BP 138/76; PULSE 84; RESP 19; O2SAT 98
== END 2025-05-08 20:51 | disposition home or self-care (01) ==
LOC: EDBD 16:52 → ER 16:52
DX: O03.4 Incomplete spontaneous abortion without complication (principal); J45.909 Unspecified asthma, uncomplicated; Z3A.01 Less than 8 weeks gestation of pregnancy; Z90.49 Acquired absence of other specified parts of digestive tract; Z91.040 Latex allergy status
CPT/HCPCS: 36415; 76801; 76817; 80048; 84702; 85025; 85610; 85730; 86850; 86900; 86901; 96361; 96374; 96375; 99285; J2270; J2405; J7040

== ENCOUNTER 2025-07-04 17:07 | Emergency (ER) | payer MEDICAID, OTHER ==
[~2025-07-04] VITALS: Ht 165.1 cm; Wt 93.0 kg
--- NOTE | 2025-07-04 18:53 | ED.PDOC ---
History of Present Illness HPI Comments 25 year old female presents to the ED with a chief compliant of syncopal episode onset today. 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 She is currently experiencing chest pain, palpitations, numbness bilateral legs, blurry vision, lightheadedness. Patient states prior to incident she was not experiencing any symptoms. Denies fever, chills, nausea, vomiting, abdominal pain, headache head injury, dysuria, hematuria. No other symptoms or modifying factors present at this time. PHYSICAL EXAM: General: Awake, alert and oriented. Skin: Skin in warm, dry and intact. Appropriate color for ethnicity. HEENT: The head is normocephalic and atraumatic. Conjunctivae are clear without exudates or hemorrhage. Sclera is non-icteric. Eyelids are normal in appearance without swelling or lesions. Oral mucosa is pink and moist Neck: The neck is supple with normal range of motion. No JVD. Cardiac: Heart rate and rhythm are normal. No murmurs, gallops, or rubs are auscultated. Respiratory: No signs of respiratory distress. Lung sounds are clear in all lobes bilaterally without rales, rhonchi, or wheezes. Abdominal: Abdomen is soft, non-tender without distention, guarding or rigidity. Bowel sounds are present and normoactive in all four quadrants. Extremities: Upper and lower extremities are atraumatic in appearance without deformity or edema. Neurological: The patient is awake, alert and oriented to person, place, and time with normal speech. Speech is clear. There is no facial asymmetry. Zumdlo-rd-nohd test. Normal gait. Psychiatric: Appropriate mood and affect. Good judgement and insight. REVIEW OF SYSTEMS: General: No fever, no chills, or fatigue HEENT: blurry vision. No sore throat, no earache, no congestion, no neck pain. Cardiac: chest pain. palpitations. Lungs: No shortness of breath, no cough. GI: No nausea, no vomiting, no diarrhea, no constipation, no abdominal pain : No dysuria, frequency, or urgency. No hematuria. Musculoskeletal: No joint pain , no joint swelling, no extremity edema. Skin: No rash, no itching. Neuro: Lightheaded. numbness bilateral legs (And as sated in HPI) Chief Complaint: Syncope Time Seen by MD: 18:40 Primary Care Provider: Yonatan Bustamante Reviewed Notes: Medications, Allergies Allergies: Coded Allergies: Latex (Verified Allergy, Mild, 04/10/23) Home Meds Active Scripts Doxylamine-Pyridoxine (DICLEGIS) 1 Tab Tab, 1 TAB OR HS PRN, #30 TAB Prn nausea/vomiting Prov:LUCIANO BIRMINGHAM MD 05/07/25 Nitrofurantoin Monohydrate Mac (Macrobid) 100 Mg Cap, 100 MG PO BID for 7 Days, #14 CAP Prov:LUCIANO BIRMINGHAM MD 05/07/25 Nitrofurantoin Monohydrate Mac (Macrobid) 100 Mg Cap, 100 MG PO BID for 3 Days, #7 CAP Prov:ANTONIO HARLEY MD 04/07/25 Ibuprofen (Ibuprofen) 800 Mg Tab, 1 TAB PO TID PRN, #30 TAB 0 Refills Prov:MIKE BROWNING 03/01/25 Methocarbamol (Methocarbamol) 750 Mg Tab, 750 MG PO BID, #20 TAB Prov:JERALD BAR 01/13/24 Famotidine (PEPCID TABLET) 20 Mg Tb, 1 TAB PO BID for 14 Days, #28 TAB Prov:CATARINO ARELLANO MD 11/02/21 Reported Medications Acetaminophen (Acetaminophen) 325 Mg Tab, 325 MG PO Q4HP PRN for MILD PAIN for 30 Days, MG 0 Refills 08/23/19 Vit W/ Ferrous Fumara (PNV PLUS MULTIVI) Plus Tab, 1 OR, TAB 08/23/19 No Reported Medication (NO REPORTED MEDICATION) Ea, 0 CO UNK, EA PATIENT HAS NO REPORTED MEDICATIONS 06/30/13 Information Source: Patient Mode of Arrival: Ambulatory Severity: Moderate Timing: Hours Duration: Since onset Prehospital treatment: None Past Medical History PAST MEDICAL HISTORY: Asthma, UTI'S Surgical History: 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 Was a procedure done?: No Differential Dx Considerations may include: Differential diagnoses considered include but are not limited to cardiac structural disease, arrhythmia, acute coronary syndrome, orthostasis, pulmonary embolism, dissection, seizure, basilar stroke, other. X-Ray, Labs, Meds, VS Vital Signs Date Time Temp Pulse Resp B/P (MAP) Pulse Ox O2 Delivery O2 Flow Rate FiO2 07/04/25 22:11 76 18 Room Air* 0 21 07/04/25 20:31 97.8 52 20 147/94 (111) 97 97.8 07/04/25 17:17 70 07/04/25 17:12 80 18 154/104 (121) 07/04/25 17:08 97.7 85 18 178/116 96 97.7 Lab Test 07/04/25 19:07 07/04/25 17:24 Range/Units White Blood Count 10.9 H 4.4-10.8 10^3/uL Red Blood Count 5.25 H 4.0-5.20 10^6/uL Hemoglobin 13.2 12.2-16.2 g/dL Hematocrit 40.1 36.0-46.0 % Mean Corpuscular Volume 76.5 L 80.0-100.0 fL Mean Corpuscular Hemoglobin 25.1 L 28.0-32.0 pg Mean Corpuscular Hemoglobin Concent 32.8 32.0-36.0 g/dL Red Cell Distribution Width 14.8 H 11.8-14.3 % Platelet Count 316 140-450 10^3/uL Mean Platelet Volume 8.8 6.9-10.8 fL Neutrophils (%) (Auto) 69.0 37.0-80.0 % Lymphocytes (%) (Auto) 25.0 10.0-50.0 % Monocytes (%) (Auto) 4.9 0.0-12.0 % Eosinophils (%) (Auto) 0.7 0.0-7.0 % Basophils (%) (Auto) 0.4 0.0-2.0 % Neutrophils # (Auto) 7.5 1.6-8.6 10 ^3/uL Lymphocytes # (Auto) 2.7 0.4-5.4 10 ^3/uL Monocytes # (Auto) 0.5 0-1.3 10 ^3/uL Eosinophils # (Auto) 0.1 0-0.8 10 ^3/uL Basophils # (Auto) 0 0-0.2 10 ^3/uL Nucleated Red Blood Cells 0.1 % Sodium Level 143 136-145 mmol/L Potassium Level 3.7 3.5-5.1 mmol/L Chloride Level 106 98-107 mmol/L Carbon Dioxide Level 27 20-31 mmol/L Anion Gap 10 5-15 Blood Urea Nitrogen 9 9-23 mg/dL Creatinine 0.63 0.550-1.02 mg/dL Glomerular Filtration Rate Calc 126 >90 mL/min BUN/Creatinine Ratio 14.3 10.0-20.0 Serum Glucose 82 74-106 mg/dL Calcium Level 9.6 8.7-10.4 mg/dL Troponin I High Sensitivity 9 </=34 ng/L B-Type Natriuretic Peptide 3.05 0-100 pg/mL POC Glucose 113 H 70-106 mg/dl Time of 1ST Reevaluation: 19:10 Reevaluation 1ST: Unchanged Patient Education/Counseling: Need For Follow Up Family Education/Counseling: No Family Present SEPSIS Sepsis Screen Date sepsis recognized/suspect: Jul 04, 2025 Time Sepsis recognized/suspect: 1709 Recent Procedure: No On Antibiotic Therapy: No Respiratory Rate >20: No Heart Rate >90: No Temp<36 C (96.8 F) or >38.3 C: No SBP <90 or MAP <65 mmHG: No New Acute Mental Status Change: No Is the patient on CPAP, BIPAP,: No Physician Orders Electrocardigram (07/04/25 17:34) Electrocardigram (07/04/25 18:53) 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 ) Orthostatic Vital Signs (07/04/25 ) Saline Lock (07/04/25 18:53) Fall Precautions Initiated (07/04/25 18:53) Vital Signs Date Time Temp Pulse Resp B/P (MAP) Pulse Ox O2 Delivery O2 Flow Rate FiO2 07/04/25 22:11 76 18 Room Air* 0 21 07/04/25 20:31 97.8 52 20 147/94 (111) 97 97.8 07/04/25 17:17 70 07/04/25 17:12 80 18 154/104 (121) 07/04/25 17:08 97.7 85 18 178/116 96 97.7 Laboratory Tests Test 07/04/25 19:07 White Blood Count 10.9 10^3/uL (4.4-10.8) H Departure 1 Departure Time of Disposition: 21:37 Impression: Primary Impression: Syncope Disposition: 01 HOME / SELF CARE / HOMELESS Condition: Stable Additional Instructions: ED DISCHARGE INSTRUCTIONS Instructions: Please read all instructions provided in this packet carefully. Although you have been discharged from the Emergency Department, this does not mean that you have a "clean bill of health". []No definitive diagnosis for your symptoms has been made today. It is possible that you are in the process of developing a serious illness. This is why you must return to the ED without fail if any new or worsening symptoms (especially if your symptoms include chest pain, trouble breathing, abdominal pain, fever, headache, confusion, trouble seeing, or trouble walking) It is also very important that you see a primary care provider (PCP) within the next 3-5 days to follow up. If you are unable to get an appointment, return to the ED for re-evaluation. Lightheadedness or Faintness: Care Instructions Overview Lightheadedness is a feeling that you are about to faint or "pass out." You do not feel as if you or your surroundings are moving. It is different from vertigo, which is the feeling that you or things around you are spinning or tilting. Lightheadedness usually goes away or gets better when you lie down. If lightheadedness gets worse, it can lead to a fainting spell. It is common to feel lightheaded from time to time. It may be caused by many things. These include allergies, dehydration, illness, and medicines. Lightheadedness usually is not caused by a serious problem. It often is caused by a short-lasting drop in blood pressure and blood flow to your head that occurs when you get up too quickly from a seated or lying position. Follow-up care is a fitzpatrick part of your treatment and safety. Be sure to make and go to all appointments, and call your doctor if you are having problems. It's also a good idea to know your test results and keep a list of the medicines you take. How can you care for yourself at home? Lie down for 1 or 2 minutes when you feel lightheaded. After lying down, sit up slowly and remain sitting for 1 to 2 minutes before slowly standing up. Avoid movements, positions, or activities that have made you lightheaded in the past. Get plenty of rest, especially if you have a cold or flu, which can cause lightheadedness. Make sure you drink plenty of fluids, especially if you have a fever or have been sweating. Do not drive or put yourself and others in danger while you feel lightheaded. When should you call for help? Call 911 anytime you think you may need emergency care. For example, call if: You passed out (lost consciousness). You have symptoms of a stroke. These may include: Sudden numbness, tingling, weakness, or loss of movement in your face, arm, or leg, especially on only one side of your body. Sudden vision changes. Sudden trouble speaking. Sudden confusion or trouble understanding simple statements. Sudden problems with walking or balance. A sudden, severe headache that is different from past headaches. You have symptoms of a heart attack. These may include: Chest pain or pressure, or a strange feeling in the chest. Sweating. Shortness of breath. Nausea or vomiting. Pain, pressure, or a strange feeling in the back, neck, jaw, or upper belly or in one or both shoulders or arms. Lightheadedness or sudden weakness. A fast or irregular heartbeat. After you call 911, the restrictive preparation operator may tell you to chew 1 adult-strength or 2 to 4 low-dose aspirin. Wait for an ambulance. Do not try to drive yourself. Watch closely for changes in your health, and be sure to contact your doctor if: Your lightheadedness gets worse or does not get better with home care. Credits for Lightheadedness or Faintness: Care Instructions Current as of: March 22, 2024 Author: [employer] Staff Clinical Review Board [employer] education is reviewed by a team that includes physicians, nurses, advanced practitioners, registered dieticians, and other healthcare professionals. Discharged With: Significant Other Comments 25 year old F presented with syncope. EKG showed no STEMI, no evidence of Brugada sign, delta wave, prolonged QT or malignant arrhythmia. Given history, exam and workup low suspicion for heart failure, ICH, seizure, stroke, HOCM, ACS, aortic dissection, malignant arrhythmia. Took patient is at baseline at this time. Patient is felt stable for discharge home to follow up with the primary care provider promptly. Patient advised to return to the emergency department syncope, worsening or concerning symptoms. Critical Care Note Critical Care Time?: No Stability Stability form required: No Heart Score Heart Score: Heart Score Response (Comments) Value History Slightly Suspicious 0 EKG Normal 0 Age <45 0 Risk Factors No known risk factors 0 Troponin Normal limit 0 Total 0 I personally scribed for ARIADNA HAY MD ([email or web address]) on 07/04/25 at 18:53. Electronically submitted by Marcelina Arias ([email or web address]). I personally scribed for ARIADNA HAY MD ([email or web address]) on 07/04/25 at 19:08. Electronically submitted by Marcelina Arias ([email or web address]). ARIADNA HAY MD Jul 04, 2025 18:53
[2025-07-04] MEDS: SODIUM CHLORIDE 0.9% 1,000 ML IV ONE (19:00)
[2025-07-04 19:20] LABS: Hematocrit 40.1 % (36.0-46.0); Hemoglobin 13.2 g/dL (12.2-16.2); Mean Corpuscular Hemoglobin 25.1 pg (28.0-32.0); Mean Corpuscular Volume 76.5 fL (80.0-100.0); Nucleated Red Blood Cells % 0.1 %
[2025-07-04 19:26] LABS: Chloride 106 mmol/L (98-107); Potassium 3.7 mmol/L (3.5-5.1); Sodium 143 mmol/L (136-145)
[2025-07-04 19:27] LABS: Anion Gap 10 (5-15); Calcium 9.6 mg/dL (8.7-10.4); Carbon Dioxide 27 mmol/L (20-31)
[2025-07-04 19:32] LABS: BUN/Creatinine Ratio 14.3 (10.0-20.0); Blood Urea Nitrogen 9 mg/dL (9-23); Glucose 82 mg/dL (74-106)
[2025-07-04 20:31] VITALS: BP 147/94; TEMP 97.8; O2SAT 97
[2025-07-04 22:11] VITALS: PULSE 76; RESP 18
--- NOTE | 2025-07-05 08:06 | ECG ---
[facility] Test Date: 2025-07-04 Test Time: 17:17:43 Pat Name: STEFFANY VIRAMONTES Department: ED Room: Gender: F [employer] Architect: IC : 2000 Requested By: PATRIC VELASQUEZ Order Number: [id number] Reading MD: Tavo Fraire Measurements Intervals [place] Rate: 70 P: 17 ME: 126 QRS: 48 QRSD: 86 T: 27 QT: 379 QTc: 409 Interpretive Statements Sinus rhythm RSR' in V1 or V2, probably normal variant Borderline Q waves in inferior leads Baseline wander in lead(s) V1 Electronically Signed On 07-06-2025 15:44:51 PST by Tavo Fraire Please click the below link to view image of tracing.
== END 2025-07-04 22:12 | disposition home or self-care (01) ==
LOC: ER 17:07
DX: R55 Syncope and collapse (principal); R07.9 Chest pain, unspecified; R00.2 Palpitations; J45.909 Unspecified asthma, uncomplicated; Z87.440 Personal history of urinary (tract) infections; Z90.49 Acquired absence of other specified parts of digestive tract; Z91.040 Latex allergy status
CPT/HCPCS: 36415; 80048; 82947; 82962; 83880; 84484; 85025; 93005

== ENCOUNTER 2025-08-06 11:05 | Outpatient (CLI) | payer OTHER | END 2025-08-06 17:00 | disposition home or self-care (01) | LOC: LAB 11:05 | PROVIDERS: ATTEND Family Medicine | DX: M54.50 Low back pain, unspecified (principal) | CPT/HCPCS: 36415; 84702; 85246 ==